=== PATIENT | female | born 1965 | race Caucasian/White ===

== ENCOUNTER 2018-11-02 02:08 | Emergency (ER) | payer BC ==
[~2018-11-02] VITALS: Ht 175.3 cm; Wt 79.4 kg
[2018-11-02 03:09] LABS: ABSOLUTE NEUTROPHILS 3.6 thou/uL (1.4-8.2); BASOPHILS 1.5 % (0.0-2.0); EOSINOPHILS 1.9 % (0.0-3.0); HEMATOCRIT 36.7 % (37.0-47.0); HEMOGLOBIN 12.5 gm/dL (12.0-15.0); LYMPHOCYTES 30.2 % (24.0-44.0); MCH 34.8 pg (26.0-34.0); MCV 102.3 fL (80.0-100.0); MONOCYTES 9.3 % (1.0-8.0); PLATELET COUNT 220 thou/uL (150-400); POLYS 57.1 % (36.0-66.0); RBC 3.59 mil/uL (4.20-5.00); RDW 14.2 % (10.5-14.5); WBC 6.3 thou/uL (4.0-11.0)
[2018-11-02 03:10] LABS: ANION GAP 12 mmol/L (7-16); BUN 27 mg/dL (7-18); CALCIUM 8.8 mg/dL (8.5-10.1); CHLORIDE 88 mmol/L (98-107); CO2 22 mmol/L (21-32); CREATININE 1.1 mg/dL (0.6-1.0); GLUCOSE 204 mg/dL (74-106); POTASSIUM 4.3 mmol/L (3.5-5.1); SODIUM 122 mmol/L (136-145)
[2018-11-02 03:18] LABS: TROPONIN-I <0.06 ng/mL (<0.06)
[2018-11-02 03:56] LABS: URINE BILIRUBIN NEGATIVE (Negative); URINE BLOOD 3+ (Negative); URINE CLARITY CLEAR; URINE COLOR YELLOW; URINE GLUCOSE-RANDOM* NEGATIVE (Negative); URINE KETONES NEGATIVE (Negative); URINE LEUKOCYTES NEGATIVE (Negative); URINE NITRITE NEGATIVE (Negative); URINE PROTEIN (DIPSTICK) NEGATIVE (Negative); URINE SPECIFIC GRAVITY <= 1.005 (1.005-1.035); URINE UROBILINOGEN 0.2 E.U./dl (0.2-1.0)
[2018-11-02 04:06] LABS: BACTERIA None Seen /HPF (None Seen); CASTS None Seen /LPF (None Seen); CRYSTALS None Seen /LPF (None Seen); MUCUS None Seen strn/LPF (None Seen); SQUAMOUS 4-10 Moderate /LPF (0-3); URINE RBC 3-10 Few /HPF (0-2); URINE WBC None Seen /HPF (0-5)
[2018-11-02 04:17] VITALS: BP 102/55
--- NOTE | 2018-11-04 13:11 | EKG ---
[address] [address] ELECTROCARDIOGRAM REPORT Name: LASHAGAGE Room #: DEP [facility]#: [id number] ������������������ Admission: 11/02/18 ������������������ Attend Phys: Discharge: 11/02/18 ������������������ Date of : 69 Report #: [id number] ����������������������������������������������������������������� [id number] THIS REPORT FOR: //name// [facility] ED Test Date: 2018-11-02 Test Time: 02:30:05 Pat Name: GAGE COLBY Department: Room: Gender: F Scale Expert: RAND : 1965 Requested By: Daylin Dhaliwal Order Number: [id number] MD: Carlos Wright Measurements Intervals [place] Rate: 103 P: 56 CT: 185 QRS: 56 QRSD: 106 T: 52 QT: 363 QTc: 475 Interpretive Statements Sinus tachycardia Otherwise normal tracing No previous ECG available for comparison Electronically Signed On 11-04-2018 13:11:25 CDT by Carlos Wright [email or web address] ��������������������������������������������� <ELECTRONICALLY SIGNED> ���������������������������������������� By: Carlos Wright MD, [facility] ��������������������������������������������� 11/04/18 1311 0230 0230 Carlos Wright MD, FACC /EPI
== END 2018-11-02 04:18 | disposition home or self-care (01) ==
LOC: ER 02:08
PROVIDERS: Student in an Organized Health Care Education/Training Program
DX: E86.0 Dehydration (principal); I10 Essential (primary) hypertension; E11.9 Type 2 diabetes mellitus without complications; F17.210 Nicotine dependence, cigarettes, uncomplicated; Z98.890 Other specified postprocedural states